=== PATIENT | male | born 1935 | race Caucasian/White ===

== ENCOUNTER 2018-06-26 09:38 | Inpatient (IN) ==
[2018-06-26] MEDS ORDERED: HYDROmorphone 2 MG/1 ML VIAL IV STA (09:51)
[2018-06-26] MEDS ORDERED: ONDANSETRON 4 MG/2 ML VIAL IV STA (09:51)
[2018-06-26] MEDS ORDERED: ACETAMINOPHEN 325 MG TABLET PO PRN (10:49)
[2018-06-26] MEDS ORDERED: MORPHINE 4 MG/1 ML VIAL IV PRN (10:49)
[2018-06-26 11:43] LABS: Basophils % 0.1 % (0.0-0.8); Eosinophils # 0.1 10*3/uL (0.0-0.87); Eosinophils % 0.5 % (0.00-10.9); Hematocrit 41.5 VOL% (42.0-52.0); Hemoglobin 13.7 GM/DL (14.0-18.0); Immature Granulocytes % 0.7 %; Lymphocytes # 0.8 10*3/uL (1.4-4.0); Lymphocytes % 5.7 % (21.2-54.2); Mean Corpuscular Hemoglobin 32 PG (27-34); Mean Corpuscular Volume 95.4 FL (87-102); Mean Platelet Volume 10.1 FL (9.6-12.0); Monocytes # 1.1 10*3/uL (0.11-0.8); Monocytes % 8.2 % (1.7-12.7); Neutrophils # 11.4 10*3/uL (1.4-7.4); Neutrophils % 84.8 % (38.7-73.9); Platelet Count 241 T/CUMM (130-400); Red Blood Count 4.35 MC/CUMM (3.8-5.5); Red Cell Distribution Width 12.7 % (9.3-17.3); White Blood Count 13.4 T/CUMM (4-12)
[2018-06-26 12:11] LABS: Albumin 3.5 G/DL (3.4-5.0); Bilirubin,Total 0.8 MG/DL (0.2-1.0); Calcium 8.7 MG/DL (8.5-10.1); Osmolality,Calculated 280.4 MOS/KG (273-304); Potassium 3.7 MMOL/L (3.5-5.1); Total Protein 6.9 G/DL (6.4-8.3)
[2018-06-26] MEDS: SODIUM CHLORIDE 0.9% 1,000 ML IV SCH (14:00)
[2018-06-26] MEDS ORDERED: cloNIDine 0.1 MG TABLET PO PRN (15:14)
[2018-06-26 18:20] LABS: Apearance,Urine CLEAR (Clear); Bilirubin,Urine Negative (Negative); Blood, Urine Negative (Negative); Glucose,Urine (UA) Negative (Negative); Ketones,Urine Negative (Negative); Mucus,Urine Occasional /LPF (Occasional); Nitrite,Urine Negative (Negative); Protein,Urine Negative; RBC,Urine 3 /HPF (0-4); Urine Color Yellow (Yellow); Urine Specific Gravity 1.013 (1.001-1.035); Urine Urobilinogen < 2.0 EU/DL (0.2-1.0); WBC,Urine 1 /HPF (0-6)
[2018-06-26] MEDS: DOCUSATE SODIUM 100 MG CAPSULE PO SCH (20:18)
[2018-06-26] MEDS: BACLOFEN 10 MG TABLET PO SCH (20:18)
[2018-06-26] MEDS: PRAMIPEXOLE 0.25 MG TABLET PO SCH (20:18)
[2018-06-27] MEDS ORDERED: BACITRACIN 50,000 UNIT VIAL ONE (06:16)
[2018-06-27 06:46] LABS: Basophils % 0.3 % (0.0-0.8); Eosinophils # 0.3 10*3/uL (0.0-0.87); Hemoglobin 12.4 GM/DL (14.0-18.0); Immature Granulocytes % 0.4 %; Immature Granulocytes Absolute 0.03 #; Lymphocytes # 1.1 10*3/uL (1.4-4.0); Lymphocytes % 14.7 % (21.2-54.2); Mean Corpuscular HGB Conc 32.6 GM/DL (32-36); Mean Corpuscular Hemoglobin 31 PG (27-34); Mean Corpuscular Volume 95.5 FL (87-102); Mean Platelet Volume 10.2 FL (9.6-12.0); Monocytes # 1.1 10*3/uL (0.11-0.8); Monocytes % 14.6 % (1.7-12.7); Neutrophils # 5.1 10*3/uL (1.4-7.4); Platelet Count 200 T/CUMM (130-400); Red Blood Count 3.98 MC/CUMM (3.8-5.5); Red Cell Distribution Width 12.8 % (9.3-17.3); White Blood Count 7.7 T/CUMM (4-12)
[2018-06-27 07:13] LABS: Calcium 8.1 MG/DL (8.5-10.1); Osmolality,Calculated 280.3 MOS/KG (273-304); Potassium 3.8 MMOL/L (3.5-5.1)
[2018-06-27] MEDS ORDERED: ROPIVACAINE 0.5% 30 ML VIAL ONE (07:28)
[2018-06-27] MEDS ORDERED: CLINDAMYCIN INJ 50 ML IV ONE (08:18)
[2018-06-27] MEDS: SODIUM CHLORIDE 0.9% 1,000 ML IV SCH ×2 (10:00→10:51)
[2018-06-27] MEDS ORDERED: fentaNYL 100 MCG/2 ML VIAL ONE (10:22)
[2018-06-27] MEDS ORDERED: KETOROLAC 30 MG/1 ML VIAL ONE (10:22)
[2018-06-27] MEDS ORDERED: ONDANSETRON 4 MG/2 ML VIAL ONE (10:22)
[2018-06-27] MEDS ORDERED: SEVOFLURANE 1 UNIT/15 MINUTE INH ONE (10:22)
[2018-06-27] MEDS ORDERED: ePHEDrine 50 MG/ML AMP ONE (10:22)
[2018-06-27] MEDS ORDERED: PROPOFOL 200 MG/20 ML VIAL IV ONE (10:22)
[2018-06-27] MEDS ORDERED: GLYCOPYRROLATE 0.4 MG/2 ML VIAL ONE (10:22)
[2018-06-27] MEDS ORDERED: MIDAZOLAM 2 MG/2 ML VIAL ONE (10:22)
[2018-06-27] MEDS ORDERED: PHENYLEPHRINE 1 MG/10 ML SYRINGE IV ONE (10:23)
[2018-06-27] MEDS ORDERED: LACTATED RINGERS 1,000 ML IV ONE (10:23)
[2018-06-27] MEDS ORDERED: ACETAMINOPHEN 1,000 MG/100 ML VIAL IV ONE (10:23)
[2018-06-27] MEDS ORDERED: NEOSTIGMINE 10 MG/10 ML VIAL ONE (10:23)
[2018-06-27] MEDS ORDERED: ROCURONIUM 100 MG/10 ML VIAL IV ONE (10:23)
[2018-06-27 11:51] LABS: Apearance,Urine CLEAR (Clear); Bacteria,Urine Occasional /HPF (Few); Bilirubin,Urine Negative (Negative); Blood, Urine Negative (Negative); Glucose,Urine (UA) Negative (Negative); Ketones,Urine Negative (Negative); Mucus,Urine Occasional /LPF (Occasional); Nitrite,Urine Negative (Negative); Protein,Urine Negative; Squamous Epithelial Cell,Urine Occasional /HPF (0-10); Urine Color Yellow (Yellow); Urine Specific Gravity 1.017 (1.001-1.035); Urine Urobilinogen < 2.0 EU/DL (0.2-1.0); WBC,Urine 1 /HPF (0-6)
[2018-06-27] MEDS: ONDANSETRON 4 MG/2 ML VIAL IV PRN ×2 (11:58→16:57)
[2018-06-27] MEDS: DOCUSATE SODIUM 100 MG CAPSULE PO SCH ×2 (12:42→21:10)
[2018-06-27] MEDS: PANTOPRAZOLE 40 MG TABLET PO SCH (12:42)
[2018-06-27] MEDS: ASPIRIN EC 81 MG TABLET PO SCH (12:42)
[2018-06-27] MEDS: CLINDAMYCIN INJ 600 MG in PREMIX 1 EACH IV SCH ×2 (13:11→21:11)
[2018-06-27] MEDS: PRAMIPEXOLE 0.25 MG TABLET PO SCH (21:08)
[2018-06-27] MEDS: BACLOFEN 10 MG TABLET PO SCH (21:10)
[2018-06-28] MEDS: SODIUM CHLORIDE 0.9% 1,000 ML IV SCH ×2 (02:36→19:40)
[2018-06-28] MEDS: CLINDAMYCIN INJ 600 MG in PREMIX 1 EACH IV SCH ×2 (06:03→13:47)
[2018-06-28 07:14] LABS: Basophils % 0.2 % (0.0-0.8); Eosinophils # 0.3 10*3/uL (0.0-0.87); Eosinophils % 2.7 % (0.00-10.9); Hematocrit 33.2 VOL% (42.0-52.0); Hemoglobin 10.8 GM/DL (14.0-18.0); Immature Granulocytes % 0.4 %; Immature Granulocytes Absolute 0.05 #; Lymphocytes % 8.7 % (21.2-54.2); Mean Corpuscular HGB Conc 32.5 GM/DL (32-36); Mean Corpuscular Hemoglobin 31 PG (27-34); Mean Corpuscular Volume 96.2 FL (87-102); Mean Platelet Volume 10.3 FL (9.6-12.0); Monocytes % 17.5 % (1.7-12.7); Neutrophils # 8.2 10*3/uL (1.4-7.4); Neutrophils % 70.5 % (38.7-73.9); Platelet Count 179 T/CUMM (130-400); Red Blood Count 3.45 MC/CUMM (3.8-5.5); Red Cell Distribution Width 12.9 % (9.3-17.3); White Blood Count 11.7 T/CUMM (4-12)
[2018-06-28 07:26] LABS: Calcium 7.8 MG/DL (8.5-10.1); Osmolality,Calculated 277.5 MOS/KG (273-304); Potassium 3.7 MMOL/L (3.5-5.1)
[2018-06-28] MEDS ORDERED: CHOLECALCIFEROL 1,000 UNIT TABLET PO SCH (09:00)
[2018-06-28] MEDS: PANTOPRAZOLE 40 MG TABLET PO SCH (09:01)
[2018-06-28] MEDS: ASPIRIN EC 81 MG TABLET PO SCH (09:01)
[2018-06-28] MEDS: DOCUSATE SODIUM 100 MG CAPSULE PO SCH (09:01)
[2018-06-28 13:45] LABS: Eosinophils 1 % (0-10); Lymphocytes 10 % (20-55); Segmented Neutrophils 82 % (50-85); Total Cells Counted 100
[2018-06-28 13:46] LABS: Platelet Estimate Normal; Polychromasia Slight
[2018-06-28 15:39] VITALS: BP 129/75
== END 2018-06-28 16:24 | disposition home or self-care (01) | DRG 494 ==
LOC: N.ED 09:38 → N.EDINP 10:49 → N.3E 12:25
PROVIDERS: ADMIT Family Medicine; ATTEND Family Medicine

== ENCOUNTER 2019-05-10 08:16 | Inpatient (IN) ==
[2019-05-10] MEDS ORDERED: SODIUM CHLORIDE 0.9% 1,000 ML IV STA (08:55)
[2019-05-10 09:12] LABS: Apearance,Urine CLEAR (Clear); Bilirubin,Urine Negative (Negative); Blood, Urine Negative (Negative); Glucose,Urine (UA) Negative (Negative); Ketones,Urine Negative (Negative); Mucus,Urine Occasional /LPF (Occasional); Nitrite,Urine Negative (Negative); Protein,Urine Negative; RBC,Urine <1 /HPF (0-4); Urine Color Straw (Yellow); Urine Specific Gravity 1.011 (1.001-1.035); Urine Urobilinogen < 2.0 EU/DL (0.2-1.0); WBC,Urine <1 /HPF (0-6)
[2019-05-10 09:15] LABS: PT Patient Result 10.9 SECS (9.6-12.2); Partial Thromboplastin Time 25.9 SECS (20.8-36.0)
[2019-05-10 09:21] LABS: Basophils % 0.4 % (0.0-0.8); Eosinophils # 0.3 10*3/uL (0.0-0.87); Eosinophils % 6.1 % (0.00-10.9); Hematocrit 44.8 VOL% (42.0-52.0); Hemoglobin 14.8 GM/DL (14.0-18.0); Immature Granulocytes % 0.4 %; Immature Granulocytes Absolute 0.02 #; Lymphocytes # 1.5 10*3/uL (1.4-4.0); Lymphocytes % 29.8 % (21.2-54.2); Mean Corpuscular Volume 95.5 FL (87-102); Mean Platelet Volume 10.8 FL (9.6-12.0); Neutrophils % 48.3 % (38.7-73.9); Platelet Count 187 T/CUMM (130-400); Red Blood Count 4.69 MC/CUMM (3.8-5.5); Red Cell Distribution Width 12.9 % (9.3-17.3); White Blood Count 4.9 T/CUMM (4-12)
[2019-05-10 09:29] LABS: Barbiturates Screen,Urine Negative (Negative); Benzodiazepines Screen,Urine Negative (Negative); Cannabinoid Screen,Urine Negative (Negative); Opiate Screen,Urine Negative (Negative); Phencyclidine Screen,Urine Negative (Negative)
[2019-05-10 09:33] LABS: Alanine Aminotransferase 24 U/L (16-61); Albumin 3.6 G/DL (3.4-5.0); Alkaline Phosphatase 71 U/L (45-117); Aspartate Amino Transferase 18 U/L (0-37); Blood Urea Nitrogen 17 MG/DL (7-18); Calcium 8.7 MG/DL (8.5-10.1); Estimated Glom Filtration Rate 76 ML/MIN; Glucose 108 MG/DL (74-106); Osmolality,Calculated 285.1 MOS/KG (273-304); Total Protein 7.2 G/DL (6.4-8.3)
[2019-05-10 09:39] LABS: Risk Ratio 4.05; VLDL CHOLESTEROL 14.2 MG/DL
[2019-05-10] MEDS ORDERED: ONDANSETRON 4 MG/2 ML VIAL IV PRN (11:41)
[2019-05-10] MEDS ORDERED: ACETAMINOPHEN 325 MG TABLET PO PRN (11:41)
[2019-05-10] MEDS: SODIUM CHLORIDE 0.9% 1,000 ML IV SCH ×2 (14:14→22:16)
[2019-05-10] MEDS: ENOXAPARIN 40 MG/0.4 ML SYRINGE SUBCUT SCH (14:16)
[2019-05-10] MEDS ORDERED: DONEPEZIL 5 MG TABLET PO ONE (20:59)
[2019-05-10] MEDS: PRAMIPEXOLE 0.25 MG TABLET PO SCH (21:39)
[2019-05-10] MEDS: DOCUSATE SODIUM 100 MG CAPSULE PO SCH (21:59)
[2019-05-10] MEDS: ZALEPLON 5 MG CAPSULE PO PRN (21:59)
[2019-05-11 04:44] LABS: Basophils % 0.1 % (0.0-0.8); Eosinophils # 0.3 10*3/uL (0.0-0.87); Eosinophils % 4.7 % (0.00-10.9); Hematocrit 38.9 VOL% (42.0-52.0); Immature Granulocytes % 0.3 %; Immature Granulocytes Absolute 0.02 #; Lymphocytes # 1.2 10*3/uL (1.4-4.0); Lymphocytes % 17.2 % (21.2-54.2); Mean Corpuscular HGB Conc 33.4 GM/DL (32-36); Mean Corpuscular Volume 94.9 FL (87-102); Mean Platelet Volume 11.1 FL (9.6-12.0); Neutrophils % 61.7 % (38.7-73.9); Platelet Count 170 T/CUMM (130-400); Red Cell Distribution Width 13.1 % (9.3-17.3); White Blood Count 6.9 T/CUMM (4-12)
[2019-05-11 05:09] LABS: Eosinophils 4 % (0-10); Hypochromasia 1+; Lymphocytes 18 % (20-55); Platelet Estimate Adequate; Segmented Neutrophils 65 % (50-85); Total Cells Counted 100
[2019-05-11 05:14] LABS: Bilirubin,Total 1.6 MG/DL (0.2-1.0); Calcium 8.4 MG/DL (8.5-10.1); Osmolality,Calculated 280.3 MOS/KG (273-304); Thyroid Stimulating Hormone 1.33 uIU/ml (0.358-3.74); Total Protein 6.1 G/DL (6.4-8.3)
[2019-05-11] MEDS: SODIUM CHLORIDE 0.9% 1,000 ML IV SCH ×3 (06:16→21:22)
[2019-05-11] MEDS ORDERED: LOSARTAN 50 MG TABLET PO SCH (09:00)
[2019-05-11] MEDS: ASPIRIN EC 81 MG TABLET PO SCH (09:25)
[2019-05-11] MEDS: DOCUSATE SODIUM 100 MG CAPSULE PO SCH ×2 (09:25→21:22)
[2019-05-11] MEDS: PANTOPRAZOLE 40 MG TABLET PO SCH (09:25)
[2019-05-11] MEDS: DONEPEZIL 5 MG TABLET PO SCH (09:25)
[2019-05-11] MEDS: CHOLECALCIFEROL 1,000 UNIT TABLET PO SCH (09:25)
[2019-05-11] MEDS: VITAMIN E 400 UNIT CAPSULE PO SCH (09:25)
[2019-05-11] MEDS: OMEGA 3 ACID ETHYL ESTERS 1 GM CAPSULE PO SCH (09:25)
[2019-05-11] MEDS: ENOXAPARIN 40 MG/0.4 ML SYRINGE SUBCUT SCH (13:49)
[2019-05-11] MEDS ORDERED: ATORVASTATIN 40 MG TABLET PO SCH (21:00)
[2019-05-11] MEDS: ZALEPLON 5 MG CAPSULE PO PRN (21:21)
[2019-05-11] MEDS: PRAMIPEXOLE 0.25 MG TABLET PO SCH (21:22)
[2019-05-12 05:37] LABS: Basophils % 0.2 % (0.0-0.8); Eosinophils # 0.3 10*3/uL (0.0-0.87); Eosinophils % 3.6 % (0.00-10.9); Hematocrit 40.5 VOL% (42.0-52.0); Hemoglobin 13.6 GM/DL (14.0-18.0); Immature Granulocytes % 0.2 %; Immature Granulocytes Absolute 0.02 #; Lymphocytes # 1.4 10*3/uL (1.4-4.0); Lymphocytes % 15.2 % (21.2-54.2); Mean Corpuscular HGB Conc 33.6 GM/DL (32-36); Mean Corpuscular Volume 95.5 FL (87-102); Mean Platelet Volume 10.7 FL (9.6-12.0); Neutrophils % 66.8 % (38.7-73.9); Platelet Count 178 T/CUMM (130-400); Red Blood Count 4.24 MC/CUMM (3.8-5.5); White Blood Count 9.1 T/CUMM (4-12)
[2019-05-12 05:59] LABS: Bilirubin,Total 1.7 MG/DL (0.2-1.0); Calcium 8.2 MG/DL (8.5-10.1); Osmolality,Calculated 284.8 MOS/KG (273-304); Total Protein 6.3 G/DL (6.4-8.3)
[2019-05-12] MEDS ORDERED: LOSARTAN 50 MG TABLET PO SCH (08:22)
[2019-05-12] MEDS ORDERED: CLOPIDOGREL 75 MG TABLET PO SCH (09:00)
[2019-05-12] MEDS: CHOLECALCIFEROL 1,000 UNIT TABLET PO SCH (09:24)
[2019-05-12] MEDS: OMEGA 3 ACID ETHYL ESTERS 1 GM CAPSULE PO SCH (09:25)
[2019-05-12] MEDS: DOCUSATE SODIUM 100 MG CAPSULE PO SCH (09:25)
[2019-05-12] MEDS: ASPIRIN EC 81 MG TABLET PO SCH (09:26)
[2019-05-12] MEDS: DONEPEZIL 5 MG TABLET PO SCH (09:26)
[2019-05-12] MEDS: PANTOPRAZOLE 40 MG TABLET PO SCH (09:26)
[2019-05-12] MEDS: VITAMIN E 400 UNIT CAPSULE PO SCH (09:26)
[2019-05-12] MEDS ORDERED: POTASSIUM CHLORIDE 20 MEQ TABLET PO ONE (09:45)
[2019-05-12] MEDS: ENOXAPARIN 40 MG/0.4 ML SYRINGE SUBCUT SCH (12:02)
[2019-05-12 13:03] VITALS: BP 146/83
== END 2019-05-12 16:10 | DRG 65 ==
LOC: EDUNIT# → EDBD → N.EDINP 08:16 → N.ED 08:16 → N.EDINP 11:00 → N.4E 11:27
PROVIDERS: ADMIT Family Medicine; ATTEND Family Medicine

== ENCOUNTER 2021-06-08 08:41 | Inpatient (IN) ==
[2021-06-08 10:25] LABS: Basophils % 0.2 % (0.0-0.8); Eosinophils # 0.1 10*3/uL (0.0-0.87); Eosinophils % 1.6 % (0.00-10.9); Hematocrit 36.1 VOL% (42.0-52.0); Hemoglobin 11.8 GM/DL (14.0-18.0); Immature Granulocytes % 0.5 %; Immature Granulocytes Absolute 0.04 #; Lymphocytes # 0.7 10*3/uL (1.4-4.0); Lymphocytes % 7.7 % (21.2-54.2); Mean Corpuscular HGB Conc 32.7 GM/DL (32-36); Mean Corpuscular Volume 95.5 FL (87-102); Mean Platelet Volume 10.2 FL (9.6-12.0); Platelet Count 222 T/CUMM (130-400); Red Blood Count 3.78 MC/CUMM (3.8-5.5); Red Cell Distribution Width 12.5 % (9.3-17.3); White Blood Count 8.8 T/CUMM (4-12)
[2021-06-08 10:37] LABS: PT Patient Result 11.4 SECS (10.5-12.0)
[2021-06-08 10:44] LABS: Albumin 2.7 G/DL (3.4-5.0); Bilirubin,Total 0.9 MG/DL (0.20-1.00); Calcium 8.2 MG/DL (8.5-10.1); Osmolality,Calculated 284.5 MOS/KG (273-304); Potassium 3.7 MMOL/L (3.5-5.1); Total Protein 6.4 G/DL (6.4-8.2)
[2021-06-08 10:48] LABS: Hypochromia 1+; Lymphocytes 5 % (20-55); Metamyelocytes 1 %; Microcytosis Slight; Segmented Neutrophils 81 % (50-85); Total Cells Counted 100
[2021-06-08 11:24] LABS: Bacteria,Urine Occasional /HPF (Few); Bilirubin,Urine Negative (Negative); Blood, Urine Negative (Negative); Glucose,Urine (UA) Negative (Negative); Hyaline Casts,Urine 1 /LPF (0-3); Ketones,Urine Negative (Negative); Mucus,Urine Occasional /LPF (Occasional); Nitrite,Urine Negative (Negative); Protein,Urine 30 MG/DL; RBC,Urine 11 /HPF (0-4); Squamous Epithelial Cell,Urine Occasional /HPF (0-10); Urine Appearance CLEAR (Clear); Urine Color Yellow (Yellow); Urine Specific Gravity 1.019 (1.001-1.035)
[2021-06-08] MEDS ORDERED: AZITHROMYCIN INJ 500 MG in SODIUM CHLORIDE 0.9% 250 ML IV STA (11:49)
[2021-06-08] MEDS ORDERED: cefTRIAXone 1,000 MG in SODIUM CHLORIDE 0.9% 100 ML IV STA (11:49)
[2021-06-08] MEDS ORDERED: ONDANSETRON 4 MG/2 ML VIAL IV PRN (12:11)
[2021-06-08] MEDS ORDERED: BENZONATATE 100 MG CAPSULE PO PRN (20:11)
[2021-06-08] MEDS: DOCUSATE SODIUM 100 MG CAPSULE PO SCH (22:21)
[2021-06-08] MEDS: PRAMIPEXOLE 0.25 MG TABLET PO SCH (22:21)
[2021-06-08] MEDS: ATORVASTATIN 40 MG TABLET PO SCH (22:21)
[2021-06-08] MEDS: methylPREDNISolone SOD SUC 40 MG/1 ML VIAL IV SCH (22:25)
[2021-06-09] MEDS: ALBUTEROL/IPRATROPIUM 3 ML NEB RESP TX SCH ×7 (05:03→22:37)
[2021-06-09 06:55] LABS: Basophils % 0.2 % (0.0-0.8); Hematocrit 35.5 VOL% (42.0-52.0); Hemoglobin 11.7 GM/DL (14.0-18.0); Immature Granulocytes % 0.6 %; Immature Granulocytes Absolute 0.04 #; Lymphocytes # 0.6 10*3/uL (1.4-4.0); Lymphocytes % 9.7 % (21.2-54.2); Mean Corpuscular Volume 95.4 FL (87-102); Mean Platelet Volume 10.5 FL (9.6-12.0); Monocytes % 6.6 % (1.7-12.7); Neutrophils % 82.9 % (38.7-73.9); Platelet Count 236 T/CUMM (130-400); Red Blood Count 3.72 MC/CUMM (3.8-5.5); Red Cell Distribution Width 12.4 % (9.3-17.3); White Blood Count 6.4 T/CUMM (4-12)
[2021-06-09 07:16] LABS: Albumin 2.3 G/DL (3.4-5.0); Bilirubin,Total 0.5 MG/DL (0.20-1.00); Calcium 8.5 MG/DL (8.5-10.1); Osmolality,Calculated 285.7 MOS/KG (273-304); Potassium 3.8 MMOL/L (3.5-5.1); Total Protein 6.4 G/DL (6.4-8.2)
[2021-06-09] MEDS: methylPREDNISolone SOD SUC 40 MG/1 ML VIAL IV SCH ×2 (08:39→22:10)
[2021-06-09] MEDS: PANTOPRAZOLE 40 MG TABLET PO SCH (10:18)
[2021-06-09] MEDS: VITAMIN E 400 UNIT CAPSULE PO SCH (10:18)
[2021-06-09] MEDS: DOCUSATE SODIUM 100 MG CAPSULE PO SCH ×3 (10:18→22:09)
[2021-06-09] MEDS: CLOPIDOGREL 75 MG TABLET PO SCH (10:18)
[2021-06-09] MEDS: DONEPEZIL 5 MG TABLET PO SCH (10:18)
[2021-06-09] MEDS: OMEGA 3 ACID ETHYL ESTERS 1 GM CAPSULE PO SCH (10:19)
[2021-06-09] MEDS: ASPIRIN EC 81 MG TABLET PO SCH (10:19)
[2021-06-09] MEDS: LOSARTAN 50 MG TABLET PO SCH (10:19)
[2021-06-09] MEDS ORDERED: GLUCAGON 1 MG VIAL IM PRN (11:38)
[2021-06-09] MEDS ORDERED: DEXTROSE 10% 250 ML BAG IV PRN (11:41)
[2021-06-09] MEDS: cefTRIAXone 1,000 MG in SODIUM CHLORIDE 0.9% 100 ML IV SCH (12:58)
[2021-06-09] MEDS: AZITHROMYCIN INJ 250 MG in SODIUM CHLORIDE 0.9% 250 ML IV SCH (13:48)
[2021-06-09] MEDS: INSULIN LISPRO 100 UNIT/ML SUBCUT SCH ×2 (16:58→22:50)
[2021-06-09] MEDS: PRAMIPEXOLE 0.25 MG TABLET PO SCH (22:10)
[2021-06-09] MEDS: ATORVASTATIN 40 MG TABLET PO SCH (22:10)
[2021-06-10] MEDS: ALBUTEROL/IPRATROPIUM 3 ML NEB RESP TX SCH (02:57)
[2021-06-10 05:37] LABS: Hematocrit 34.9 VOL% (42.0-52.0); Hemoglobin 11.5 GM/DL (14.0-18.0); Immature Granulocytes % 0.6 %; Immature Granulocytes Absolute 0.04 #; Lymphocytes # 0.7 10*3/uL (1.4-4.0); Lymphocytes % 9.3 % (21.2-54.2); Mean Corpuscular Volume 95.1 FL (87-102); Monocytes % 8.4 % (1.7-12.7); Neutrophils % 81.7 % (38.7-73.9); Platelet Count 231 T/CUMM (130-400); Red Blood Count 3.67 MC/CUMM (3.8-5.5); Red Cell Distribution Width 12.2 % (9.3-17.3); White Blood Count 7.2 T/CUMM (4-12)
[2021-06-10 06:15] LABS: Calcium 8.2 MG/DL (8.5-10.1); Osmolality,Calculated 295.3 MOS/KG (273-304); Potassium 3.4 MMOL/L (3.5-5.1)
[2021-06-10] MEDS ORDERED: ALBUTEROL/IPRATROPIUM 3 ML NEB RESP TX ONE (06:57)
[2021-06-10] MEDS: CLOPIDOGREL 75 MG TABLET PO SCH (09:12)
[2021-06-10] MEDS: VITAMIN E 400 UNIT CAPSULE PO SCH (09:12)
[2021-06-10] MEDS: ASPIRIN EC 81 MG TABLET PO SCH (09:13)
[2021-06-10] MEDS: PANTOPRAZOLE 40 MG TABLET PO SCH (09:13)
[2021-06-10] MEDS: OMEGA 3 ACID ETHYL ESTERS 1 GM CAPSULE PO SCH (09:13)
[2021-06-10] MEDS: INSULIN LISPRO 100 UNIT/ML SUBCUT SCH ×4 (09:13→21:40)
[2021-06-10] MEDS: LOSARTAN 50 MG TABLET PO SCH (09:13)
[2021-06-10] MEDS: DONEPEZIL 5 MG TABLET PO SCH (09:13)
[2021-06-10] MEDS: DOCUSATE SODIUM 100 MG CAPSULE PO SCH ×2 (09:14→21:39)
[2021-06-10] MEDS: methylPREDNISolone SOD SUC 40 MG/1 ML VIAL IV SCH ×2 (09:42→21:39)
[2021-06-10] MEDS ORDERED: POTASSIUM CHLORIDE RIDER 10 MEQ/100 ML PREMIX IV PRN (10:49)
[2021-06-10] MEDS ORDERED: MAGNESIUM SULF RIDER 2 GM/50 ML PREMIX IV PRN (10:49)
[2021-06-10] MEDS ORDERED: MAGNESIUM SULF RIDER 4 GM/100 ML PREMIX IV PRN (10:49)
[2021-06-10] MEDS ORDERED: POTASSIUM CHLORIDE 20 MEQ TABLET PO PRN (10:49)
[2021-06-10] MEDS ORDERED: ALPRAZolam 0.5 MG TABLET PO PRN (11:38)
[2021-06-10] MEDS: cefTRIAXone 1,000 MG in SODIUM CHLORIDE 0.9% 100 ML IV SCH (13:35)
[2021-06-10] MEDS: AZITHROMYCIN INJ 250 MG in SODIUM CHLORIDE 0.9% 250 ML IV SCH (14:56)
[2021-06-10] MEDS: PRAMIPEXOLE 0.25 MG TABLET PO SCH (21:39)
[2021-06-10] MEDS: ATORVASTATIN 40 MG TABLET PO SCH (21:39)
[2021-06-10] MEDS: SERTRALINE 25 MG TABLET PO SCH (21:39)
[2021-06-11] MEDS: PANTOPRAZOLE 40 MG TABLET PO SCH (08:52)
[2021-06-11] MEDS: methylPREDNISolone SOD SUC 40 MG/1 ML VIAL IV SCH ×2 (08:52→21:22)
[2021-06-11] MEDS: CLOPIDOGREL 75 MG TABLET PO SCH (08:52)
[2021-06-11] MEDS: LOSARTAN 50 MG TABLET PO SCH (08:52)
[2021-06-11] MEDS: ASPIRIN EC 81 MG TABLET PO SCH (08:52)
[2021-06-11] MEDS: DONEPEZIL 5 MG TABLET PO SCH (08:52)
[2021-06-11] MEDS: DOCUSATE SODIUM 100 MG CAPSULE PO SCH ×2 (08:52→21:21)
[2021-06-11] MEDS: OMEGA 3 ACID ETHYL ESTERS 1 GM CAPSULE PO SCH (08:53)
[2021-06-11] MEDS: VITAMIN E 400 UNIT CAPSULE PO SCH (08:53)
[2021-06-11] MEDS: INSULIN LISPRO 100 UNIT/ML SUBCUT SCH ×4 (09:03→21:22)
[2021-06-11] MEDS: cefTRIAXone 1,000 MG in SODIUM CHLORIDE 0.9% 100 ML IV SCH (12:28)
[2021-06-11] MEDS: AZITHROMYCIN INJ 250 MG in SODIUM CHLORIDE 0.9% 250 ML IV SCH (13:51)
[2021-06-11] MEDS: PRAMIPEXOLE 0.25 MG TABLET PO SCH (21:21)
[2021-06-11] MEDS: ATORVASTATIN 40 MG TABLET PO SCH (21:21)
[2021-06-11] MEDS: ZALEPLON 5 MG CAPSULE PO PRN (21:21)
[2021-06-11] MEDS: SERTRALINE 25 MG TABLET PO SCH (21:22)
[2021-06-11] MEDS: ACETAMINOPHEN 325 MG TABLET PO PRN (21:29)
[2021-06-12] MEDS: DONEPEZIL 5 MG TABLET PO SCH (09:35)
[2021-06-12] MEDS: INSULIN LISPRO 100 UNIT/ML SUBCUT SCH ×4 (09:35→21:45)
[2021-06-12] MEDS: PANTOPRAZOLE 40 MG TABLET PO SCH (09:35)
[2021-06-12] MEDS: methylPREDNISolone SOD SUC 40 MG/1 ML VIAL IV SCH ×2 (09:35→21:45)
[2021-06-12] MEDS: GABAPENTIN 300 MG CAPSULE PO SCH ×2 (09:35→21:43)
[2021-06-12] MEDS: CHOLECALCIFEROL 1,000 UNIT TABLET PO SCH (09:35)
[2021-06-12] MEDS: DOCUSATE SODIUM 100 MG CAPSULE PO SCH ×2 (09:35→21:44)
[2021-06-12] MEDS: ASPIRIN EC 81 MG TABLET PO SCH (09:35)
[2021-06-12] MEDS: MEMANTINE 5 MG TABLET PO SCH ×2 (09:35→21:45)
[2021-06-12] MEDS: VITAMIN E 400 UNIT CAPSULE PO SCH (09:36)
[2021-06-12] MEDS: OMEGA 3 ACID ETHYL ESTERS 1 GM CAPSULE PO SCH (09:36)
[2021-06-12] MEDS: LOSARTAN 50 MG TABLET PO SCH (09:36)
[2021-06-12] MEDS: LORATADINE 10 MG TABLET PO SCH (09:36)
[2021-06-12] MEDS: hydroCHLOROthiazide 12.5 MG CAPSULE PO SCH (09:36)
[2021-06-12] MEDS: CLOPIDOGREL 75 MG TABLET PO SCH (09:36)
[2021-06-12] MEDS: cefTRIAXone 1,000 MG in SODIUM CHLORIDE 0.9% 100 ML IV SCH (13:31)
[2021-06-12] MEDS: AZITHROMYCIN INJ 250 MG in SODIUM CHLORIDE 0.9% 250 ML IV SCH (14:11)
[2021-06-12] MEDS: PRAMIPEXOLE 0.25 MG TABLET PO SCH (21:44)
[2021-06-12] MEDS: SERTRALINE 25 MG TABLET PO SCH (21:44)
[2021-06-12] MEDS: ATORVASTATIN 40 MG TABLET PO SCH (21:44)
[2021-06-12] MEDS: ZALEPLON 5 MG CAPSULE PO PRN (21:44)
[2021-06-12] MEDS: ACETAMINOPHEN 325 MG TABLET PO PRN (21:50)
[2021-06-13 05:35] LABS: Basophils % 0.1 % (0.0-0.8); Eosinophils % 0.1 % (0.00-10.9); Hematocrit 37.6 VOL% (42.0-52.0); Hemoglobin 12.6 GM/DL (14.0-18.0); Immature Granulocytes % 1.2 %; Lymphocytes # 0.9 10*3/uL (1.4-4.0); Lymphocytes % 11.2 % (21.2-54.2); Mean Corpuscular HGB Conc 33.5 GM/DL (32-36); Mean Corpuscular Volume 93.8 FL (87-102); Mean Platelet Volume 9.7 FL (9.6-12.0); Monocytes % 10.1 % (1.7-12.7); Neutrophils % 77.3 % (38.7-73.9); Platelet Count 219 T/CUMM (130-400); Red Blood Count 4.01 MC/CUMM (3.8-5.5); Red Cell Distribution Width 11.8 % (9.3-17.3); White Blood Count 8.3 T/CUMM (4-12)
[2021-06-13 06:00] LABS: Albumin 2.2 G/DL (3.4-5.0); Bilirubin,Total 0.5 MG/DL (0.20-1.00); Calcium 8.3 MG/DL (8.5-10.1); Osmolality,Calculated 290.4 MOS/KG (273-304); Potassium 4.9 MMOL/L (3.5-5.1); Total Protein 5.8 G/DL (6.4-8.2)
[2021-06-13] MEDS: VITAMIN E 400 UNIT CAPSULE PO SCH (10:02)
[2021-06-13] MEDS: GABAPENTIN 300 MG CAPSULE PO SCH (10:02)
[2021-06-13] MEDS: PANTOPRAZOLE 40 MG TABLET PO SCH (10:02)
[2021-06-13] MEDS: hydroCHLOROthiazide 12.5 MG CAPSULE PO SCH (10:02)
[2021-06-13] MEDS: DONEPEZIL 5 MG TABLET PO SCH (10:03)
[2021-06-13] MEDS: CHOLECALCIFEROL 1,000 UNIT TABLET PO SCH (10:03)
[2021-06-13] MEDS: LOSARTAN 50 MG TABLET PO SCH (10:03)
[2021-06-13] MEDS: MEMANTINE 5 MG TABLET PO SCH (10:03)
[2021-06-13] MEDS: OMEGA 3 ACID ETHYL ESTERS 1 GM CAPSULE PO SCH (10:04)
[2021-06-13] MEDS: LORATADINE 10 MG TABLET PO SCH (10:04)
[2021-06-13] MEDS: ASPIRIN EC 81 MG TABLET PO SCH (10:04)
[2021-06-13] MEDS: CLOPIDOGREL 75 MG TABLET PO SCH (10:04)
[2021-06-13] MEDS: INSULIN LISPRO 100 UNIT/ML SUBCUT SCH ×2 (10:05→11:24)
[2021-06-13] MEDS: DOCUSATE SODIUM 100 MG CAPSULE PO SCH (10:06)
[2021-06-13] MEDS: methylPREDNISolone SOD SUC 40 MG/1 ML VIAL IV SCH (10:09)
[2021-06-13 12:19] VITALS: BP 145/72
== END 2021-06-13 17:04 | disposition swing bed (61) | DRG 177 ==
LOC: EDBD → EDUNIT# → N.EDINP 08:41 → N.ED 08:41 → N.TELES 16:00
PROVIDERS: ADMIT Family Medicine; ATTEND Family Medicine

== ENCOUNTER 2022-05-18 23:43 | Observation (INO) ==
[2022-05-19 00:39] LABS: Basophils % 0.2 % (0.0-0.8); Eosinophils # 0.3 10*3/uL (0.0-0.87); Eosinophils % 2.3 % (0.00-10.9); Hematocrit 39.9 VOL% (42.0-52.0); Hemoglobin 13.3 GM/DL (14.0-18.0); Immature Granulocytes % 0.5 %; Immature Granulocytes Absolute 0.06 #; Lymphocytes # 1.1 10*3/uL (1.4-4.0); Lymphocytes % 8.6 % (21.2-54.2); Mean Corpuscular HGB Conc 33.3 GM/DL (32-36); Mean Corpuscular Volume 95.2 FL (87-102); Mean Platelet Volume 10.1 FL (9.6-12.0); Monocytes # 1.3 10*3/uL (0.11-0.8); Monocytes % 9.5 % (1.7-12.7); Neutrophils % 78.9 % (38.7-73.9); Platelet Count 217 T/CUMM (130-400); Red Blood Count 4.19 MC/CUMM (3.8-5.5); Red Cell Distribution Width 13.2 % (9.3-17.3); White Blood Count 13.2 T/CUMM (4-12)
[2022-05-19 00:51] LABS: Acetaminophen 2.7 UG/ML (10-30); Salicylate < 2.8 MG/DL (2.8-20)
[2022-05-19 01:04] LABS: Albumin 3.7 G/DL (3.4-5.0); Bilirubin,Total 0.5 MG/DL (0.20-1.00); Calcium 8.9 MG/DL (8.5-10.1); Osmolality,Calculated 286.5 MOS/KG (273-304); Potassium 3.3 MMOL/L (3.5-5.1); Total Protein 7.1 G/DL (6.4-8.2)
[2022-05-19] MEDS ORDERED: SODIUM CHLORIDE 0.9% 1,000 ML IV STA (02:15)
[2022-05-19] MEDS: SODIUM CHLORIDE 0.9% 1,000 ML IV SCH ×2 (04:09→16:00)
[2022-05-19] MEDS ORDERED: POTASSIUM CHLORIDE 20 MEQ TABLET PO ONE (06:00)
[2022-05-19] MEDS: ACETAMINOPHEN 325 MG TABLET PO PRN ×2 (16:55→22:53)
[2022-05-19] MEDS ORDERED: ATORVASTATIN 40 MG TABLET PO SCH (21:00)
[2022-05-19] MEDS ORDERED: PRAMIPEXOLE 0.25 MG TABLET PO SCH (21:00)
[2022-05-19] MEDS ORDERED: GABAPENTIN 300 MG CAPSULE PO SCH (21:00)
[2022-05-19] MEDS ORDERED: DONEPEZIL 10 MG TABLET PO SCH (21:00)
[2022-05-19] MEDS: MEMANTINE 5 MG TABLET PO SCH (22:54)
[2022-05-20] MEDS: ACETAMINOPHEN 325 MG TABLET PO PRN (04:57)
[2022-05-20 06:08] LABS: Basophils % 0.3 % (0.0-0.8); Eosinophils # 0.5 10*3/uL (0.0-0.87); Eosinophils % 6.1 % (0.00-10.9); Hematocrit 35.6 VOL% (42.0-52.0); Hemoglobin 11.5 GM/DL (14.0-18.0); Immature Granulocytes % 0.3 %; Immature Granulocytes Absolute 0.02 #; Lymphocytes # 1.2 10*3/uL (1.4-4.0); Lymphocytes % 15.5 % (21.2-54.2); Mean Corpuscular HGB Conc 32.3 GM/DL (32-36); Mean Corpuscular Volume 96.5 FL (87-102); Mean Platelet Volume 9.9 FL (9.6-12.0); Monocytes # 0.9 10*3/uL (0.11-0.8); Monocytes % 11.5 % (1.7-12.7); Neutrophils % 66.3 % (38.7-73.9); Platelet Count 177 T/CUMM (130-400); Red Blood Count 3.69 MC/CUMM (3.8-5.5)
[2022-05-20 06:24] LABS: Calcium 8.1 MG/DL (8.5-10.1); Osmolality,Calculated 288.8 MOS/KG (273-304); Potassium 3.8 MMOL/L (3.5-5.1)
[2022-05-20] MEDS ORDERED: MAGNESIUM SULF RIDER 2 GM/50 ML PREMIX IV ONE ×2 (06:29→08:22)
[2022-05-20] MEDS ORDERED: CHOLECALCIFEROL 1,000 UNIT TABLET PO SCH (09:00)
[2022-05-20] MEDS ORDERED: CLOPIDOGREL 75 MG TABLET PO SCH (09:00)
[2022-05-20] MEDS ORDERED: PANTOPRAZOLE 40 MG TABLET PO SCH (09:00)
[2022-05-20] MEDS ORDERED: ASPIRIN EC 81 MG TABLET PO SCH (09:00)
[2022-05-20] MEDS: MEMANTINE 5 MG TABLET PO SCH (09:08)
[2022-05-20 12:21] VITALS: BP 133/62
== END 2022-05-20 12:00 | disposition home or self-care (01) ==
LOC: N.EDINP 23:43 → N.ED 23:43 → N.3E 05-19 21:08
PROVIDERS: ADMIT Internal Medicine; ATTEND Internal Medicine